=== PATIENT | male | born 1950 | race Native Hawaiian/Other Pacific Islander ===

== ENCOUNTER 2017-09-18 13:44 | Outpatient (CLI) | payer OTHER, MEDICARE ==
[~2017-09-18 13:44] MED LIST: CELEBREX200 MG PO; LEVO0.1519 PO; NEXIUM40 M1 PO; PRAVASTATIN10 MG PO; TRICOR48 MG PO; UNITHROID175 MCG OR; WELLBUTRIN100 M1 PO
== END 2017-09-18 14:45 | disposition home or self-care (01) ==
LOC: RAD 13:44
DX: J40 Bronchitis, not specified as acute or chronic (principal)

== ENCOUNTER 2017-12-15 08:53 | Outpatient (CLI) | payer OTHER, MEDICARE ==
[2017-12-15 09:16] LABS: PLATELET COUNT 148 K/uL (142-355)
[2017-12-15 09:46] LABS: POTASSIUM 4.2 mmol/L (3.6-5.2)
== END 2017-12-15 21:31 | disposition home or self-care (01) ==
LOC: LABW 08:53
PROVIDERS: Internal Medicine
DX: E11.9 Type 2 diabetes mellitus without complications (principal); Z12.5 Encounter for screening for malignant neoplasm of prostate; R82.99 Other abnormal findings in urine
CPT/HCPCS: 36415; 80053; 80061; 81000; 82043; 82570; 83036; 84153; 84439; 84443; 85027; 87086; 87088

== ENCOUNTER 2018-06-23 09:04 | Outpatient (CLI) | payer OTHER, MEDICARE ==
[2018-06-23 09:27] LABS: PLATELET COUNT 110 K/uL (142-355)
[2018-06-23 09:59] LABS: POTASSIUM 4.1 mmol/L (3.6-5.2)
== END 2018-06-23 22:26 | disposition home or self-care (01) ==
LOC: LABW 09:04 → US 09:30 → LABW 22:26
PROVIDERS: Internal Medicine
DX: E78.00 Pure hypercholesterolemia, unspecified (principal); E03.9 Hypothyroidism, unspecified; E11.9 Type 2 diabetes mellitus without complications; Z12.5 Encounter for screening for malignant neoplasm of prostate; Z13.6 Encounter for screening for cardiovascular disorders
CPT/HCPCS: 36415; 80053; 80061; 81000; 83036; 84153; 84439; 84443; 85027

== ENCOUNTER 2018-12-03 10:11 | Outpatient (CLI) | payer OTHER, MEDICARE ==
[2018-12-03 10:44] LABS: PLATELET COUNT 118 K/uL (142-355)
[2018-12-03 10:59] LABS: POTASSIUM 4.5 mmol/L (3.6-5.2)
== END 2018-12-03 21:50 | disposition home or self-care (01) ==
LOC: LABW 10:11
PROVIDERS: Internal Medicine
DX: E11.9 Type 2 diabetes mellitus without complications (principal)
CPT/HCPCS: 36415; 80053; 80061; 81000; 82043; 82570; 83036; 84439; 84443; 85027

== ENCOUNTER 2019-08-03 08:24 | Outpatient (CLI) | payer OTHER, MEDICARE ==
[2019-08-03 09:19] LABS: POTASSIUM 4.2 mmol/L (3.6-5.2)
[2019-08-03 09:47] LABS: PLATELET COUNT 123 K/uL (142-355)
== END 2019-08-03 20:14 | disposition home or self-care (01) ==
LOC: LABW 08:24
PROVIDERS: Internal Medicine
DX: E11.9 Type 2 diabetes mellitus without complications (principal); Z12.5 Encounter for screening for malignant neoplasm of prostate; N40.0 Benign prostatic hyperplasia without lower urinary tract symptoms
CPT/HCPCS: 36415; 80053; 80061; 81000; 83036; 84153; 84439; 84443; 85027

== ENCOUNTER 2019-08-11 11:40 | Outpatient (CLI) | payer OTHER, MEDICARE | END 2019-08-11 21:32 | disposition home or self-care (01) | LOC: LAB 11:40 | DX: R30.0 Dysuria (principal) | CPT/HCPCS: 87077; 87086; 87088; 87185; 87186 ==

== ENCOUNTER 2019-10-04 12:00 | Outpatient (CLI) | payer OTHER, MEDICARE | END 2019-10-04 21:51 | disposition home or self-care (01) | LOC: LAB 12:00 | DX: N39.0 Urinary tract infection, site not specified (principal) | CPT/HCPCS: 87086; 87088 ==

== ENCOUNTER 2019-10-25 15:23 | Outpatient (CLI) | payer OTHER, MEDICARE | END 2019-10-25 20:14 | disposition home or self-care (01) | LOC: LABW 15:23 | DX: N39.0 Urinary tract infection, site not specified (principal) | CPT/HCPCS: 87086; 87088 ==

== ENCOUNTER 2019-12-13 10:27 | Outpatient (CLI) | payer OTHER, MEDICARE | END 2019-12-13 19:16 | disposition home or self-care (01) | LOC: CT 10:27 | DX: R10.84 Generalized abdominal pain (principal) ==

== ENCOUNTER 2020-07-17 09:58 | Outpatient (CLI) | payer OTHER, MEDICARE ==
[2020-07-17 10:22] LABS: PLATELET COUNT 129 K/uL (142-355)
[2020-07-17 11:01] LABS: POTASSIUM 4.4 mmol/L (3.6-5.2)
== END 2020-07-17 19:11 | disposition home or self-care (01) ==
LOC: LABW 09:58
PROVIDERS: Internal Medicine
DX: E11.9 Type 2 diabetes mellitus without complications (principal); E03.8 Other specified hypothyroidism
CPT/HCPCS: 36415; 80053; 80061; 81000; 82043; 82570; 83036; 84439; 84443; 85027

== ENCOUNTER 2020-11-28 09:36 | Outpatient (CLI) | payer OTHER, MEDICARE ==
[2020-11-28 10:57] LABS: POTASSIUM 4.4 mmol/L (3.6-5.2)
[2020-11-28 11:43] LABS: PLATELET COUNT 108 K/uL (142-355)
== END 2020-11-28 19:36 | disposition home or self-care (01) ==
LOC: LABW 09:36
PROVIDERS: ATTEND Internal Medicine
DX: E11.9 Type 2 diabetes mellitus without complications (principal); Z12.5 Encounter for screening for malignant neoplasm of prostate; N40.0 Benign prostatic hyperplasia without lower urinary tract symptoms
CPT/HCPCS: 36415; 80053; 80061; 81000; 82043; 82570; 83036; 84153; 84439; 84443; 85027

== ENCOUNTER 2021-01-04 09:56 | Outpatient (CLI) | payer OTHER, MEDICARE | END 2021-01-04 21:28 | disposition home or self-care (01) | LOC: US 09:56 | PROVIDERS: ATTEND Internal Medicine | DX: Z12.2 Encounter for screening for malignant neoplasm of respiratory organs (principal); Z13.6 Encounter for screening for cardiovascular disorders; Z87.891 Personal history of nicotine dependence | CPT/HCPCS: G0297-TC ==

== ENCOUNTER 2021-10-30 16:10 | Outpatient (CLI) | payer OTHER, MEDICARE ==
[2021-10-30 16:54] LABS: PLATELET COUNT 103 K/uL (142-355)
== END 2021-10-30 19:05 | disposition home or self-care (01) ==
LOC: LAB 16:10
PROVIDERS: ATTEND Internal Medicine
DX: Z00.00 Encounter for general adult medical examination without abnormal findings (principal); Z12.5 Encounter for screening for malignant neoplasm of prostate; Z79.899 Other long term (current) drug therapy
CPT/HCPCS: 80053; 80061; 81000; 84153; 84443; 85027

== ENCOUNTER 2022-03-27 14:27 | Outpatient (CLI) | payer OTHER | END 2022-03-27 19:26 | disposition home or self-care (01) | LOC: LABW 14:27 | PROVIDERS: ATTEND Urology | DX: N20.0 Calculus of kidney (principal) | CPT/HCPCS: 82365 ==

== ENCOUNTER 2022-10-17 12:23 | Outpatient (CLI) | payer OTHER | END 2022-10-17 19:00 | disposition home or self-care (01) | LOC: RAD 12:23 | PROVIDERS: ATTEND Internal Medicine | DX: M54.2 Cervicalgia (principal) ==

== ENCOUNTER 2022-11-06 12:50 | Outpatient (CLI) | payer OTHER | END 2022-11-06 19:26 | disposition home or self-care (01) | LOC: CT 12:50 | PROVIDERS: ATTEND Internal Medicine | DX: Z12.2 Encounter for screening for malignant neoplasm of respiratory organs (principal); Z87.891 Personal history of nicotine dependence; Z09 Encounter for follow-up examination after completed treatment for conditions other than malignant neoplasm ==

== ENCOUNTER 2022-12-14 11:07 | Emergency (ER) | payer OTHER ==
[~2022-12-14] VITALS: Ht 175.3 cm; Wt 86.2 kg
[2022-12-14 11:10] VITALS: TEMP 99.9
[2022-12-14 11:27] LABS: PLATELET COUNT 152 K/uL (142-355)
[2022-12-14 11:34] LABS: POTASSIUM 4.3 mmol/L (3.6-5.2)
[2022-12-14 13:43] VITALS: BP 113/64
== END 2022-12-14 13:44 | disposition home or self-care (01) ==
LOC: ED 11:07
PROVIDERS: Emergency Medicine
DX: J44.1 Chronic obstructive pulmonary disease with (acute) exacerbation (principal); R79.89 Other specified abnormal findings of blood chemistry; E80.7 Disorder of bilirubin metabolism, unspecified; Z20.822 Contact with and (suspected) exposure to COVID-19
CPT/HCPCS: 36415; 36600; 80053; 82550; 82805; 83880; 84484; 85027; 85379; 85610; 85730; 87502; 87635; 93005; 94664; 96365; 96375; 99284; J0696; J2930; U0003

== ENCOUNTER 2023-03-24 13:39 | Outpatient (CLI) | payer OTHER | END 2023-03-24 19:36 | disposition home or self-care (01) | LOC: RESP 13:39 | PROVIDERS: ATTEND Specialist | DX: I27.81 Cor pulmonale (chronic) (principal); E78.49 Other hyperlipidemia; Z79.899 Other long term (current) drug therapy ==

== ENCOUNTER 2023-05-07 10:16 | Day surgery (SDC) | payer OTHER ==
[~2023-05-07] VITALS: Ht 165.1 cm; Wt 68.0 kg
== END 2023-05-07 12:45 | disposition home or self-care (01) ==
LOC: OR 10:16
PROVIDERS: ATTEND Internal Medicine Gastroenterology
PROC: 0DBK8ZX Excision of Ascending Colon, Via Natural or Artificial Opening Endoscopic, Diagnostic (ICD-10-PCS; principal; 2023-05-07)
DX: Z12.11 Encounter for screening for malignant neoplasm of colon (principal); D12.2 Benign neoplasm of ascending colon; D12.4 Benign neoplasm of descending colon; D12.8 Benign neoplasm of rectum; K57.30 Diverticulosis of large intestine without perforation or abscess without bleeding; K64.0 First degree hemorrhoids; E11.9 Type 2 diabetes mellitus without complications; M19.90 Unspecified osteoarthritis, unspecified site; J44.9 Chronic obstructive pulmonary disease, unspecified; Z87.442 Personal history of urinary calculi; E07.9 Disorder of thyroid, unspecified
CPT/HCPCS: J2704; J7120